=== PATIENT | male | born 1980 | race Caucasian/White ===

== ENCOUNTER 2016-11-16 13:54 | Emergency (ER) | payer OTHER ==
[~2016-11-16] VITALS: Ht 180.3 cm; Wt 143.5 kg
[~2016-11-16 13:54] MED LIST: ACET1TAB40 PO
[2016-11-16 14:03] VITALS: Ht 180.3 cm; Wt 143.5 kg
--- NOTE | 2016-11-16 15:23 | RADRPT ---
PROCEDURE: Chest Radiograph. CLINICAL INDICATION: Shortness of breath TECHNIQUE: Single frontal chest radiograph. COMPARISON: None available FINDINGS: The cardiomediastinal silhouette is within normal limits. There is mild left greater than right bas ilar atelectasis. A superimposed left basilar infiltrate could be present . There is no pleural ef fusion. The bones are intact. IMPRESSION: 1. Left greater than right basilar atelectasis with possible superimposed left infiltrate. Recomme nd follow-up as clinically indicated. 2. Otherwise unremarkable chest radiograph. RPTAT: KK .Kd Dillard MD, MD Date Time Electronically viewed and signed by .Kd Dillard MD, on 11/16/2016 15:23 .B/
--- NOTE | 2016-11-16 15:50 | RADRPT ---
PROCEDURE: US Lower extremity Venous. CLINICAL INDICATION: Pain and swelling TECHNIQUE: Multiple sonographic images of the left lower extremity deep venous system was obtained utilizing grayscale, color-flow, compressive sonography and doppler imaging with augmentation. The images were reviewed on a PACS workstation. COMPARISON: 09/09/2015 FINDINGS: There is normal compressibility and flow within the left common femoral, deep femoral, superficial f emoral and popliteal veins. Normal respiratory variation and augmentation is seen. There is normal color flow and compressibility of left posterior tibial and peroneal veins IMPRESSION: No sonographic evidence for left lower extremity deep venous thrombosis. RPTAT: HH .Shady Anna MD, MD Date Time Electronically viewed and signed by .Shady Anna MD, on 11/16/2016 15:49 .W/
[2016-11-16] MEDS ORDERED: IBUP-1542 PO (16:03)
[2016-11-16] MEDS ORDERED: TRAM50TA2 PO (16:03)
--- NOTE | 2016-11-16 16:09 | ERD ---
ER Documentation Chief Complaint Date/Time DATE: 11/16/16 TIME: 16:06 Chief Complaint Sent from for eval R/O DVT HPI This 28-year-old male presents with a request by primary doctor for evaluation of left lower extremity pain. Describes the pain is being in his left ankle. Had a previous injury in that ankle, distal fibula fracture per the medical record.. Possibly has some intermittent sensation of shortness of breath no fevers, cough, URI no chest pain. Has no weakness restricted range of motion. ROS All systems reviewed and are negative except as per history of present illness. Medications Home Meds Active Scripts Tramadol HCl (Tramadol HCl) 50 Mg Tablet, 50 MG PO Q4 Y for PAIN, #15 TAB Prov:WALTER MENESES MD 11/16/16 Ibuprofen* (Motrin*) 600 Mg Tab, 600 MG PO Q6, #20 TAB Prov:WALTER MENESES MD 11/16/16 Reported Medications Acetaminophen-Codeine* (Acetaminophen-Cod #3*) 300-30 Mg Tab, 1 TAB PO BID Y for PAIN, #30 TAB 09/09/15 Allergies Allergies: Coded Allergies: No Known Drug Allergies (Verified Allergy, Unknown, 09/09/15) PMhx/Soc History of Surgery: No Anesthesia Reaction: No Hx Neurological Disorder: No Hx Respiratory Disorders: No Hx Cardiac Disorders: Yes (HTN) Hx Psychiatric Problems: No Hx Miscellaneous Medical Probl: No Hx Alcohol Use: Yes (occasional, beer today) Hx Substance Use: No Hx Tobacco Use: Yes Physical Exam Vitals Vital Signs Date Time Temp Pulse Resp B/P Pulse Ox O2 Delivery O2 Flow Rate FiO2 11/16/16 14:03 97.9 103 20 118/63 92 Physical Exam Const: [] Radha, [id number], morbidly obese. Head: Atraumatic Eyes: Normal Conjunctiva ENT: Normal External Ears, Nose and Mouth. Neck: Full range of motion..~ No meningismus. Resp: Clear to auscultation bilaterally Cardio: Regular rate and rhythm, no murmurs Abd: Soft, non tender, non distended. Normal bowel sounds Skin: No petechiae or rashes Back: No midline or flank tenderness Ext: No cyanosis, or signs of ischemia. There are some very mild bilateral nonpitting edema of the ankles. There is some tenderness on the left greater than right. There is no gross appreciation of calf swelling or Homans sign. Neur: Awake and alert Psych: Normal Mood and Affect Procedures/MDM Left lower extremity Doppler shows no evidence of DVT. EKG: Rate/Rhythm: [Normal Sinus Rhythm] rate equals 96 QRS, ST, T-waves: [No changes consistent w/ acute ischemia] Impression: [No evidence of ischemia or arrhythmia]. No acute findings with right incomplete bundle branch block Chest X-ray 1V Interpreted by me: Soft Tissue: No acute abnormalities Bones: No acute abnormalities Mediastinum/Cardiac Silhouette/Lungs: Left lower lobe mild atelectasis. Consider infiltrate in clinical setting. Impression-left lower lobe atelectasis versus infiltrate correlate clinically. Patient presents with left lower extremity pain. He does have some mild shortness of breath. He has no URI symptoms so I doubt pneumonia is noted on x- ray. Patient does have a previous injury in the affected ankle and the pain appears to be having more left ankle pain than left calf pain. We discharged home the prescription ibuprofen and tramadol and instructions to elevate his extremities at home and follow-up with primary doctor. She does return for fevers, redness, new worsening symptoms. Current evaluation today does not suggest DVT, CHF, acute coronary syndrome, cellulitis, ischemia, additional causes of presenting complaints. Patient is advised however return for new or worsening symptoms as directed. Departure Diagnosis: Primary Impression: Pain of left leg Condition: Stable Patient Instructions: Arthralgia Additional Instructions: Examines normal hoy. Cheque otro vez con lima doctor primario en el proximo [place] or regresa para mas o nueva simptomas. NIE ULICES JAMES EN CASA. WALTER MENESES MD Nov 16, 2016 16:09
[2016-11-16 16:17] VITALS: BP 111/68; PULSE 72; RESP 16; TEMP 98.6
== END 2016-11-16 17:05 | disposition home or self-care (01) ==
LOC: FTE 13:54
DX: M79.605 Pain in left leg (principal); I10 Essential (primary) hypertension; R06.02 Shortness of breath; Z87.891 Personal history of nicotine dependence
CPT/HCPCS: 71010; 93005; 93971